=== PATIENT | female | born 1975 | race Hispanic/Latino ===

== ENCOUNTER 2024-06-13 17:06 | Emergency (ER) | payer SELFPAY ==
[~2024-06-13] VITALS: Ht 167.6 cm; Wt 124.7 kg
[2024-06-13] MEDS ORDERED: ketOROlac 15MG/ML VIAL (15MG/ML) IM ONE (17:30)
[2024-06-13] MEDS: HYDROcodone/acetaMINOPHEN 10/325 MG TAB PO ONE (17:36)
--- NOTE | 2024-06-13 17:43 | ERN ---
General Chief Complaint: Mechanical Fall Stated Complaint: FALL Time Seen by MD: 17:10 Time Seen by Midlevel: 17:10 Source: patient History of Present Illness Initial Comments Patient is a morbidly obese 49-year-old female presenting to the emergency department following a mechanical ground level fall. Patient states that at approximately 2:00 p.m. today she sustained a mechanical ground level fall at a local furniture store. She states she tripped over a piece of carpet landing on her knees with her hands outstretched. She was able to ambulate after the fall. She denies any head injury or loss of consciousness. Denies being on any blood thinners. After leaving the furniture store she was able to take her 9-year-old son to the doctor's. Throughout the day she reports developing soreness to her lower back, left shoulder and knees. She does report taking lisinopril to "protect your kidneys" and specifically denies having a history of high blood pressure. Allergies: Coded Allergies: No Known Drug Allergies (Unverified Allergy, Unknown, 06/13/24) Past Medical History Past Medical History: Asthma, High Cholesterol Past Surgical History: ROS Dictation CONSTITUTIONAL: Negative except for HPI HEAD/FACE: Negative except for HPI EENT: Negative except for HPI RESPIRATORY: Negative except for HPI GASTROINTESTINAL/ABDOMINAL: Negative except for HPI GENITOURINARY: Negative except for HPI MUSCULOSKELETAL: Negative except for HPI INTEGUMENTARY: Negative except for HPI NEUROLOGICAL/PSYCH: Negative except for HPI HEMATOLOGIC/LYMPHATIC: Negative except for HPI All Systems Negative, Except as noted above. 13 point review of systems assessed and all negative except for above. Physical Exam Physical Exam Dictation Vital Signs reviewed General Appearance: Alert, oriented x 3, no acute distress, well developed, nourished. Head and Face: non-traumatic. Eyes: PERRL, pink conjunctivas, eyelid no trauma, anterior chamber with arcus senilis. Ears: Pinnas intact and no signs of trauma or erythema ear canals clear and no discharge TM no erythema Nose: No discharge, no bleeding. Oropharynx: Mouth normal, tongue pink, pharynx clear,no erythema, tonsils no exudates, no abscesses noted, mucous membrane moist Neck: Supple, non-tender, no thyromegaly, no masses, no JVD, no bruits Breast:Deferred Chest:No tenderness, no crepitus, no paradoxical movement, no retractions Lungs:Clear, well-ventilated, symmetric, no rales, no wheezing, no rhonchi, no stridor, good breath sounds bilaterally Heart: Regular rate, regular rhythm, no murmur, no gallops Vascular: no peripheral edema, Abdomen: Soft, positive bowel sounds, nondistended, no guarding, nontender, no rebound, no masses no hepatomegaly, no splenomegaly, no Gaffney's sign, no hernias. Rectal: Deferred Genital: Deferred Neurological: Normal speech, motor function intact, sensory function intact Musculoskeletal: Neck nontender, full range of motion, back nontender, full range of motion, Extremities: nontender, full range of motion Skin: Color pink, dry, no turgor, no rash, no lacerations, no abrasions, no contusions. Lymphatic: Deferred MDM MDM: Patient is a morbidly obese 49-year-old female presenting to the emergency department following a mechanical ground level fall. Patient states that at approximately 2:00 p.m. today she sustained a mechanical ground level fall at a local furniture store. She states she tripped over a piece of carpet landing on her knees with her hands outstretched. She was able to ambulate after the fall. She denies any head injury or loss of consciousness. Denies being on any blood thinners. After leaving the furniture store she was able to take her 9-year-old son to the doctor's. Throughout the day she reports developing soreness to her lower back, left shoulder and knees. She does report taking lisinopril to "protect your kidneys" and specifically denies having a history of high blood pressure. Initial vital signs are remarkable for a temperature of 98.2. A h eart rate of 89 beats per minute. A respiratory rate of 18 breaths per minute. Blood pressure is 181/95. This may be related to her pain or new onset hypertension. On physical examination patient is in no acute distress. Patient was able to ambulate from the lobby into the triaged room without assistance and with a normal gait. She was full range motion of bilateral upper and lower extremities. She has no red flag symptoms. Patient does not have any urinary/bowel incontinence. Denies any focal weakness. She was 5/5 strength to bilateral lower extremities. Patient was road tested and she does report some lower back pain. There was no midline tenderness on examination. There is some mild paraspinal muscle tenderness to the lumbar region. An x-ray was obtained of the lumbar area which reveals no acute fracture or dislocation. Patient was given pain medication in the emergency department and will be discharged home with supportive management. Differential diagnosis: Muscle strain, fracture, fall There are no social concerns with this patient. Prescription drug management Prescriptions will include: None Medical management and examination interpretation discussions were had by me with other qualified healthcare professionals as indicated for the patient's care. ED Course Orders Procedure Category Date Status Time Lumbar Spine 2-3vws RAD 06/13/24 Taken 17:19 Ketorolac PHA 06/13/24 Complete Tromethamine 15mg/Ml 17:30 Hydrocodone/Apap PHA 06/13/24 Complete 10/325 Tab ([place] 10) 17:30 Current Medications Medications (Trade) Dose Ordered Sig/Sophia Route PRN Reason Start Time Stop Time Status Last Admin Dose Admin Acetaminophen/ Hydrocodone Bitart ([place] 10) 1 tab ONCE ONCE PO 06/13/24 17:30 06/13/24 17:31 DC 06/13/24 17:36 Ketorolac Tromethamine (toRADol) 15 mg ONCE ONCE IM 06/13/24 17:30 06/13/24 17:28 DC Vital Signs Date Time Temp Pulse Resp B/P (MAP) Pulse Ox O2 Delivery O2 Flow Rate FiO2 06/13/24 17:14 98.2 89 18 181/95 99 Room Air* 0 21 06/13/24 17:10 98.2 89 18 181/95 99 Room Air 0 DX & DISP Disposition: Discharge Departure Impression: Primary Impression: Fall Additional Impression: Low back strain Condition: Stable Scripts Cyclobenzaprine HCl (Flexeril) 10 Mg Tab 10 MG PO TID for muscle sstiffness, #14 TAB 0 Refills Prov: JORGE A BURT 06/13/24 Ketorolac Tromethamine (Ketorolac Tromethamine) 10 Mg Tablet 1 TAB PO BID for pain for 5 Days, #10 TAB 0 Refills Prov: JORGE A BURT 06/13/24 Additional Instructions: Your x-ray does not show any evidence of an acute fracture or dislocation. Please follow up with your primary care doctor in 2-3 days for repeat ev aluation. Return to your nearest ER for any new or worsening symptoms. Time of Disposition: 19:22 I have reviewed the case, and I agree with, Diagnosis and Plan I performed the substantive portion of the visit. I have reviewed and personally made and approve the management plan that is documented in the note by myself or the PALMER. I acknowledge for responsibility for the patient's management plan. JORGE A BURT Jun 13, 2024 17:43
[2024-06-13] MEDS ORDERED: CYCL10TA16 PO (19:23)
[2024-06-13] MEDS ORDERED: KETO10TA2 PO (19:23)
[2024-06-13 19:51] VITALS: BP 164/78; PULSE 84; RESP 18; TEMP 98.2; O2SAT 99
--- NOTE | 2024-06-13 21:02 | HMCIMG ---
EXAM: LUMBAR SPINE 2-3VWS CLINICAL HISTORY: fall COMPARISON:None. TECHNIQUE: AP and lateral images of the lumbar spine were obtained. FINDINGS: There is straightening of the normal lumbar lordosis. There is no vertebral body height loss or fractures. Soft tissues are unremarkable. IMPRESSION: Straightening of the normal lumbar lordosis due to positioning or muscle spasm.
== END 2024-06-13 19:52 | disposition home or self-care (01) ==
LOC: EDH 17:06
DX: S39.012A Strain of muscle, fascia and tendon of lower back, initial encounter (principal); J45.909 Unspecified asthma, uncomplicated; E66.01 Morbid (severe) obesity due to excess calories; E78.00 Pure hypercholesterolemia, unspecified; W01.0XXA Fall on same level from slipping, tripping and stumbling without subsequent striking against object, initial encounter; Y93.89 Activity, other specified; Y92.89 Other specified places as the place of occurrence of the external cause; Y99.8 Other external cause status
CPT/HCPCS: 72100; 99284; J1885

== ENCOUNTER 2024-09-05 13:12 | Emergency (ER) | payer BC ==
[~2024-09-05] VITALS: Ht 167.6 cm; Wt 124.7 kg
[~2024-09-05 13:12] MED LIST: CYCL10TA16 PO; KETO10TA2 PO
[2024-09-05 13:48] LABS: BASOPHILS # (AUTO) 0.02 K/uL (0.00-0.20); BASOPHILS % (AUTO) 0.2 % (0.0-5.0); EOSINOPHILS # (AUTO) 0.17 K/uL (0.00-0.70); EOSINOPHILS % (AUTO) 1.7 % (0.0-8.0); HEMATOCRIT 42.5 % (36-48); IMMATURE GRANULOCYTE ABSOLUTE 0.04 K/uL (0-1); LYMPHOCYTES # (AUTO) 0.5 K/uL (1.0-4.8); LYMPHOCYTES % (AUTO) 4.4 % (21.0-51.0); MEAN CORPUSCULAR HEMOGLOBIN 29.9 pg (27.0-33.0); MEAN CORPUSCULAR HGB CONC 32.5 g/dL (32.0-36.0); MEAN CORPUSCULAR VOLUME 92.2 fL (79-99); MONOCYTES # (AUTO) 0.5 K/uL (0.1-1.0); MONOCYTES % (AUTO) 4.5 % (3.0-13.0); NEUTROPHILS % (AUTO) 88.8 % (40.0-77.0); PLATELET COUNT (AUTO) 267 K/uL (130-400); RED BLOOD CELL COUNT(AUTO) 4.61 MIL/uL (4.00-5.50); RED CELL DISTRIBUTION WIDTH 14.1 % (11.0-15.5); WHITE BLOOD COUNT (AUTO) 10.1 K/uL (4.8-10.8)
[2024-09-05] MEDS: LACTATED RINGERS 1000ML 1,000 ML IV ONE (13:48)
[2024-09-05 14:00] LABS: CREATININE 0.6 mg/dL (0.5-1.0); INR 1.01 (0.85-1.15); PROTHROMBIN TIME 10.7 SEC (9.6-11.6)
[2024-09-05 14:08] LABS: COVID19 (SARS ANTIGEN RAPID) PRESUMPTIVE NEGATIVE (NEGATIVE); INFLUENZA TYPE A Negative For Type A (NEGATIVE); INFLUENZA TYPE B Negative For Type B (NEGATIVE)
--- NOTE | 2024-09-05 14:12 | ERN ---
General Chief Complaint: Shortness of Breath Stated Complaint: SOB DIZZINESS WEAKNESS HIGH HEART RATE Time Seen by MD: 13:23 History of Present Illness Initial Comments 49-year-old female who presents for pleuritic type chest discomfort, palpitations and increased chest discomfort with deep respirations. Patient reports symptoms started today. Allergies: Coded Allergies: No Known Drug Allergies (Unverified Allergy, Unknown, 06/13/24) Home Meds Active Scripts Prednisone (Prednisone) 20 Mg Tablet, 1 TAB PO BID for 5 Days, #10 TAB 0 Refills Prov:SEBASTIAN GUEVARA DO 09/05/24 Cyclobenzaprine HCl (Flexeril) 10 Mg Tab, 10 MG PO TID for muscle sstiffness, #14 TAB 0 Refills Prov:JORGE A BURT 06/13/24 Ketorolac Tromethamine (Ketorolac Tromethamine) 10 Mg Tablet, 1 TAB PO BID for pain for 5 Days, #10 TAB 0 Refills Prov:JORGE A BURT 06/13/24 Past Medical History Past Medical History: Asthma, Diabetes-Type II, High Cholesterol Past Surgical History: ROS Dictation CONSTITUTIONAL: No chills, no fever, no weakness, no diaphoresis, no malaise. HEAD/FACE: No signs of trauma. EENT: No eye pain, no blurred vision, no tearing, no double vision, no ear pain, no ear discharge, no nose pain, no nasal congestion, no throat pain, no throat swelling, no mouth pain. RESPIRATORY: Cough CARDIOVASCULAR: Palpitations pleuritic type chest pain GASTROINTESTINAL/ABDOMINAL: No abdominal pain, no constipation, no diarrhea, no nausea, no vomiting. GENITOURINARY: No abnormal discharge, no dysuria, no frequent urination, no hematuria. No complaints of pain in the genitals. MUSCULOSKELETAL: No back pain, no gout, no joint pain, no joint swelling, no muscle pain, no muscle stiffness, no neck pain. INTEGUMENTARY: No change in color, no change in hair/nails, no dryness, no lesion, no lumps, no rash. NEUROLOGICAL/PSYCH: No anxiety, not depressed, no emotional problem, no headache, no numbness, no pre-existing deficit, no history of seizures, no tremors, no weakness. HEMATOLOGIC/LYMPHATIC: Not anemic, no history of blood clots, no apparent bleeding, no bruising, glands not swollen. All Systems Negative, Except as Noted. Physical Exam Physical Exam Dictation VITAL SIGNS: Reviewed. GENERAL APPEARANCE: Alert, oriented x3, no acute distress, obese. HEAD AND FACE: Non-traumatic. EYES: PERRL, pink conjunctivas, eyelid no trauma, anterior chamber clear. EARS: Pinnas intact and no signs of trauma or erythema. Ear canals clear and no discharge. TMs no erythema. NOSE: No discharge, no bleeding. OROPHARYNX: Mouth normal, teeth no caries, tongue pink. Pharynx clear, no erythema. Tonsils no exudates, no abscesses noted. Mucous membrane moist. NECK: Supple, non-tender, no thyromegaly, no masses, no JVD, no bruits. BREAST: Deferred. CHEST: No tenderness, no crepitus, no paradoxical movement, no retractions. LUNGS: Clear, well-ventilated, symmetric, no rales, no wheezing, no rhonchi, no stridor, good breath sounds bilaterally. HEART: Regular rate, regular rhythm, no murmur, no gallops. VASCULAR: No peripheral edema. ABDOMEN: Soft, positive bowel sounds, nondistended, no guarding, nontender, no rebound, no masses no hepatomegaly, no splenomegaly, no Gaffney's sign, no hernias. RECTAL: Deferred. GENITAL: Deferred. NEUROLOGICAL: Normal speech, gross motor function intact, gross sensory function intact. MUSCULOSKELETAL: Neck nontender, full range of motion, back nontender, full range of motion. EXTREMITIES: Nontender, full range of motion. SKIN: Color pink, dry, no turgor, no rash, no lacerations, no abrasions, no contusions. LYMPHATICS: Deferred. Results Laboratory and Microbiology Lab and Micro Result Laboratory Tests Test 09/05/24 13:37 09/05/24 13:39 Influenza Type A Antigen Negative For Type A Influenza Type B Antigen Negative For Type B SARS-CoV-2 Antigen (Rapid) PRESUMPTIVE NEGATIVE White Blood Count 10.1 K/uL (4.8-10.8) Red Blood Count 4.61 MIL/uL (4.00-5.50) Hemoglobin 13.8 g/dL (12.0-16.0) Hematocrit 42.5 % (36-48) Mean Corpuscular Volume 92.2 fL (79-99) Mean Corpuscular Hemoglobin 29.9 pg (27.0-33.0) Mean Corpuscular Hemoglobin Concent 32.5 g/dL (32.0-36.0) Red Cell Distribution Width 14.1 % (11.0-15.5) Platelet Count 267 K/uL (130-400) Mean Platelet Volume 11.0 fL (7.5-10.5) H Immature Granulocyte % (Auto) 0.4 % (0-1) Neutrophils (%) (Auto) 88.8 % (40.0-77.0) H Lymphocytes (%) (Auto) 4.4 % (21.0-51.0) L Monocytes (%) (Auto) 4.5 % (3.0-13.0) Eosinophils (%) (Auto) 1.7 % (0.0-8.0) Basophils (%) (Auto) 0.2 % (0.0-5.0) Neutrophils # (Auto) 9.0 K/uL (1.8-7.7) H Lymphocytes # (Auto) 0.5 K/uL (1.0-4.8) L Monocytes # (Auto) 0.5 K/uL (0.1-1.0) Eosinophils # (Auto) 0.17 K/uL (0.00-0.70) Basophils # (Auto) 0.02 K/uL (0.00-0.20) Absolute Immature Granulocyte (auto 0.04 K/uL (0-1) Nucleated Red Blood Cells 0.0 % (0.0-0.19) White Cell Morphology Comment See comments Prothrombin Time 10.7 SEC (9.6-11.6) Prothromb Time International Ratio 1.01 (0.85-1.15) Sodium Level 138 mmol/L (136-145) Potassium Level 4.0 mmol/L (3.5-5.1) Chloride Level 102 mmol/L (101-111) Carbon Dioxide Level 26 mmol/L (21-32) Blood Urea Nitrogen 19 mg/dL (7-18) H Creatinine 0.6 mg/dL (0.5-1.0) Glomerular Filtration Rate Calc 110 mL/min (>90) Random Glucose 106 mg/dL (70-105) H Total Calcium 8.8 mg/dL (8.5-10.1) Total Creatine Kinase 66 U/L (21-232) Troponin I High Sensitivity < 4 ng/L (4-50) L B-Type Natriuretic Peptide 8 pg/mL (0-100) MDM CC: Chest palpitations pleuritic type chest pain Historian: Patient Comorbidities: Asthma, diabetes, high cholesterol, obesity Limitations by social determinants of health: None Differential diagnosis: Pleuritic chest pain, lung pathology, PE, ACS, other. Clinical exam is unremarkable. Clear lungs nontoxic Vital signs show a heart rate of 115, respiratory rate 20, temperature 100.8. Oxygen saturation 99% on room air. EKG: Sinus tachycardia rate of 106, normal axis, good R-wave progression, interv als are stable no STEMI. Independently interpreted by me. Labs (independently interpreted by me): No leukocytosis left shift 88% Major feels, no bands. Coags stable. BMP normal, troponin normal, CK normal, BNP normal. Flu SARS negative. CXR (independently interpreted by me): No focal infiltrates cardiomegaly or pleural effusion CTA (independently interpreted by me ): No signs of PE, clear lung singleton. Treatment in ED: 1 L normal saline, IV Toradol Re-evaluation: Pain-free asymptomatic Symptoms most consistent with a viral syndrome. No signs of PE, ACS, or other life-threatening pathology. Pain is controlled p.o. tolerant nontoxic. We will DC with short course Of prednisone and PCP follow up. ED Course Orders Procedure Category Date Status Time Cbc With Differential LAB 09/05/24 Complete 13:23 Prothrombin Time With LAB 09/05/24 Complete INR 13:23 B-Type Natriuretic LAB 09/05/24 Complete Peptide 13:23 Chest 1vw RAD 09/05/24 Resulted 13:23 12 Lead Ekg Tracing- EKG 09/05/24 Logged Technical 13:23 Lactated Ringers PHA 09/05/24 Complete 1000ml (Lactated 13:30 Creatine Kinase, Total LAB 09/05/24 Complete 13:23 Troponin I High LAB 09/05/24 Complete Sensitivity 13:23 Basic Metabolic Panel LAB 09/05/24 Complete 13:23 Covid19 (Sars Antigen LAB 09/05/24 Complete Rapid) 13:23 Influenza Type A & B, LAB 09/05/24 Complete Rapid 13:23 Ct Chest Pe Protocol CT 09/05/24 Resulted Wwo Cont 13:23 Ketorolac PHA 09/05/24 Complete Tromethamine 15mg/Ml 13:30 Iohexol (Omnipaque) PHA 09/05/24 Complete 14:51 Current Medications Medications (Trade) Dose Ordered Sig/Sophia Route PRN Reason Start Time Stop Time Status Last Admin Dose Admin Iohexol (Omnipaque) 75 ml STK-MED ONCE IV 09/05/24 14:51 09/05/24 14:51 DC Ketorolac Tromethamine (toRADol) 15 mg ONCE ONCE IV 09/05/24 13:30 09/05/24 13:31 DC 09/05/24 14:29 Lactated Ringer's 1,000 ml @ 0 mls/hr ONCE ONCE IV 09/05/24 13:30 09/05/24 13:31 DC 09/05/24 13:48 Vital Signs Date Time Temp Pulse Resp B/P (MAP) Pulse Ox O2 Delivery O2 Flow Rate FiO2 09/05/24 16:48 98.2 84 20 121/68 99 Room Air* 0 21 09/05/24 13:52 98.4 105 21 117/66 98 Room Air* 0 21 09/05/24 13:16 100.8 115 20 140/79 99 Room Air 0 DX & DISP Disposition: Discharge Departure Impression: Primary Impression: Non-cardiac chest pain Additional Impression: Viral syndrome Condition: Stable Scripts Prednisone (Prednisone) 20 Mg Tablet 1 TAB PO BID for 5 Days, #10 TAB 0 Refills Prov: SEBASTIAN GUEVARA DO 09/05/24 Additional Instructions: Your symptoms are most consistent with a viral syndrome. This will often clear on its own. You did have a low-grade fever here in the ER. Otherwise her vital signs are stable. Your EKG is stable. Your labs (CBC w/ differential, BMP, CK, troponin, BNP, caogs, flu & COVID) are unremarkable. The chest x-ray is stable. The CT angiogram of your chest is normal. I have prescribed prednisone, which is an anti-inflammatory steroid. Take as prescribed. I recommend that you take over the counter ibuprofen for pain or fever. Drink plenty of liquids. If you continue with symptoms after a few days, i recommend follow up with your primary doctor. Return to the emergency department as needed. Referrals: SELF,REFERRAL (PCP) SEBASTIAN GUEVARA DO Sep 05, 2024 14:12
[2024-09-05 14:19] LABS: B-TYPE NATRIURETIC PEPTIDE 8 pg/mL (0-100)
[2024-09-05] MEDS: ketOROlac 15MG/ML VIAL (15MG/ML) IV ONE (14:29)
[2024-09-05] MEDS ORDERED: IOHEXOL-350 75 ML VIAL IV ONE (14:51)
--- NOTE | 2024-09-05 14:56 | HMCIMG ---
CHEST 1VW HISTORY: Cough COMPARISON: None FINDINGS: A frontal projection of the chest was obtained. No acute pulmonary infiltrates is seen. The heart is normal in size. Prominent interstitial markings are seen. No evidence of aortic calcification is seen. IMPRESSION: 1. No acute pulmonary infiltrate is seen.
--- NOTE | 2024-09-05 15:52 | HMCIMG ---
CT CHEST PE PROTOCOL WWO CONT HISTORY: PE COMPARISON: None TECHNIQUE: CT angiography of the chest was performed. The study was performed using angiographic technique with maximum intensity projection reconstruction images. Patient was given cc of Omnipaque through intravenous route. FINDINGS: No CT evidence of filling defect is seen to suggest pulmonary embolus. No CT evidence of aortic dissection is seen. No evidence of parenchymal disease is seen. No CT evidence of pleural effusion or pericardial effusion is seen. The heart is enlarged. The study is limited due to patient's large body habitus. No evidence of adrenal mass is seen. Degenerative changes of the spine are noted. IMPRESSION: 1. No CT evidence of acute pulmonary embolus is seen. CT was performed with one or more following dose reduction techniques: automated exposure control, adjustment of the mA and kv according to patient's size, or use of a iterative reconstruction technique.
[2024-09-05] MEDS ORDERED: PRED20TA3 PO (16:30)
[2024-09-05 16:48] VITALS: BP 121/68; PULSE 84; RESP 20; TEMP 98.2; O2SAT 99
--- NOTE | 2024-09-06 11:27 | EKG ---
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
== END 2024-09-05 16:55 | disposition home or self-care (01) ==
LOC: EDH 13:12
DX: R07.81 Pleurodynia (principal); B34.9 Viral infection, unspecified; E11.9 Type 2 diabetes mellitus without complications; J45.909 Unspecified asthma, uncomplicated; E78.00 Pure hypercholesterolemia, unspecified; E66.9 Obesity, unspecified; Z20.822 Contact with and (suspected) exposure to COVID-19; Z79.52 Long term (current) use of systemic steroids
CPT/HCPCS: 99284; 96374; 71270; 96361; 71045; 87426; 82550; 84484; 80048; 83880; 85025; 85610; 87804 ×2; 36415; 93005; J1885; J7120; Q9967